=== PATIENT | male | born 1985 | race Two or more races ===

== ENCOUNTER 2018-08-13 14:48 | Emergency (ER) | payer OTHER ==
[~2018-08-13] VITALS: Ht 175.3 cm; Wt 84.8 kg
[2018-08-13] MEDS ORDERED: KETOROLAC TROMETH 60MG/2ML VIAL IM ONE (17:00)
[2018-08-13 17:23] VITALS: BP 112/80
== END 2018-08-13 17:32 | disposition home or self-care (01) ==
LOC: ER 14:48
DX: S16.1XXA Strain of muscle, fascia and tendon at neck level, initial encounter (principal); R51 Headache; Z88.0 Allergy status to penicillin; X50.1XXA Overexertion from prolonged static or awkward postures, initial encounter; Y93.H9 Activity, other involving exterior property and land maintenance, building and construction; Y92.238 Other place in hospital as the place of occurrence of the external cause; Y99.8 Other external cause status
CPT/HCPCS: 70450; 72125; 96372; 99284; J1885